=== PATIENT | male | born 1995 | race Caucasian/White ===

== ENCOUNTER 2020-05-08 16:24 | Emergency (ER) | payer OTHER, SELFPAY ==
[2020-05-08 16:37] VITALS: BP 116/61; PULSE 79; RESP 16; TEMP 36.7; O2SAT 96
[2020-05-08 16:51] VITALS: BP 116/61; PULSE 79; RESP 16; TEMP 36.7; O2SAT 96; BMI 28.5
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
[2020-05-08] MEDS: Lidocaine HCl 1 % MPF 5 ML VIAL SUBCUT (17:35)
== END 2020-05-08 17:50 | disposition home or self-care (01) ==
PROVIDERS: Emergency Provider Internal Medicine
DX: L02.214 Cutaneous abscess of groin (principal); L03.314 Cellulitis of groin
CPT/HCPCS: 10060; 99284

== ENCOUNTER 2020-09-29 00:04 | Emergency (ER) | payer OTHER, SELFPAY ==
[2020-09-29 00:17] VITALS: BP 122/74; PULSE 74; RESP 15; TEMP 37; O2SAT 99; BMI 29.1
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
[2020-09-29] MEDS: Ibuprofen 600 MG TABLET PO (01:48)
== END 2020-09-29 02:00 | disposition home or self-care (01) ==
PROVIDERS: Emergency Provider Internal Medicine
DX: S93.401A Sprain of unspecified ligament of right ankle, initial encounter (principal); S96.911A Strain of unspecified muscle and tendon at ankle and foot level, right foot, initial encounter; X50.1XXA Overexertion from prolonged static or awkward postures, initial encounter; Y93.01 Activity, walking, marching and hiking; Y92.480 Sidewalk as the place of occurrence of the external cause; Y99.9 Unspecified external cause status
CPT/HCPCS: 99283; 99284

== ENCOUNTER 2020-10-17 23:28 | Observation (INO) | payer OTHER, SELFPAY ==
--- NOTE | ~2020-10-17 | XR_ITS ---
EXAMINATION: XR CHEST CLINICAL INFORMATION: Seizure COMPARISON: None TECHNIQUE: Frontal view of the chest was obtained. FINDINGS: No significant abnormality is noted involving the heart, lungs, mediastinum, bony thorax or soft tissues. XR/XR chest 1V IMPRESSION: Unremarkable examination.
--- NOTE | ~2020-10-17 | CT_ITS ---
EXAMINATION: CT HEAD WITHOUT CONTRAST CLINICAL INFORMATION: Seizure COMPARISON: None TECHNIQUE: Contiguous axial imaging was performed from the skull base to vertex without intravenous administration of contrast. This CT examination was performed using dose optimization techniques as appropriate, variously including the following: *Automated exposure control *Adjustment of mA and/or kV according to patient size (this includes techniques or standardized protocols for targeted exams where dose is matched to indication/reason for exam; i.e. extremities or head) *Use of iterative reconstruction technique DLP: 710 mGy-cm FINDINGS: There is no evidence of acute intracranial hemorrhage or territorial infarction. No abnormal mass effect or midline shift is seen. Pelayo to white matter differentiation is well preserved. No extra-axial fluid collections are identified. The ventricles are normal in size. There is no abnormal attenuation within the brain parenchyma. The osseous structures and soft tissues are normal. There is complete opacification of the right frontal sinus, right ethmoid air cells and right maxillary sinus with hyperdense secretions associated with periosteal thickening/hyperostosis indicative of chronicity. No evidence of mucocele formation. Remaining paranasal sinuses are clear. Mastoid air cells are clear. CT/CT head/brain wo con IMPRESSION: No acute intracranial pathology. No evidence of intracranial mass. Chronic right frontal, maxillary and ethmoid sinusitis.
[2020-10-17 23:37] VITALS: BP 119/56; PULSE 75; RESP 18; TEMP 36.7; O2SAT 97; BMI 29.0
--- NOTE | 2020-10-18 00:16 | ECG_ITS ---
Test Reason : Seizure Blood Pressure : / mmHG Vent. Rate : 061 BPM Atrial Rate : 061 BPM P-R Int : 226 ms QRS Dur : 108 ms QT Int : 422 ms P-R-T Axes : 035 023 023 degrees QTc Int : 424 ms Sinus rhythm with 1st degree A-V block Otherwise normal ECG No previous ECGs available Referred By: Hellen Black Electronically Signed By:YOBANI VILLAVICENCIO MD
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
--- NOTE | 2020-10-18 00:21 | PC.NURSE ---
patient went to CT at this time
[2020-10-18] MEDS: levETIRAcetam 500 MG TABLET PO ×3 (00:32→20:07)
[2020-10-18] MEDS: 0.9 % Sodium Chloride 1,000 ML 999 ML IVCONT (00:32)
[2020-10-18 00:49] LABS: Basophils Absolute Auto 0.1 X10*3/uL (0.0-0.2); Basophils Percent Auto 0.8 % (0-2); Eosinophils Absolute Auto 0.2 X10*3/uL (0.0-0.4); Eosinophils Percent Auto 2.8 % (0-4); Hemoglobin 12.5 g/dl (14.0-18.0); Imm Gran Abs Auto 0.01 X10*3/uL (0.00-0.03); Imm Gran Pct Auto 0.1 % (0.0-0.4); Lymphocytes Absolute Auto 3.9 X10*3/uL (1.2-4.9); Lymphocytes Percent Auto 51.8 % (20-40); MANUAL DIFF FLAG NO; Mean Corpuscular HGB Conc 32.9 g/dl (31.0-36.0); Mean Corpuscular Hemoglobin 29.8 pg (27.0-33.0); Mean Corpuscular Volume 90.7 fL (80-98); Mean Platelet Volume 9.6 fL (9.4-12.4); Monocytes Absolute Auto 0.5 X10*3/uL (0.1-1.2); Monocytes Percent Auto 6.7 % (2-11); Neutrophils Absolute Auto 2.9 X10*3/uL (2.0-8.3); Neutrophils Percent Auto 37.8 % (45-73); Platelet Count 225 X10*3/uL (160-400); Red Blood Count 4.19 X10*6/uL (4.60-5.80); Red Cell Distribution Width 13.2 % (11.0-16.0); White Blood Count 7.6 X10*3/uL (4.8-10.8)
[2020-10-18 01:05] LABS: COVID-19 Test Negative (Negative); IDNOW Serial# 9DD0AD1C
[2020-10-18 01:19] LABS: Alanine Aminotransferase 18 U/L (0-40); Alkaline Phosphatase 83 U/L (39-117); Anion Gap 13 (12-20); Aspartate Amino Transferase 23 U/L (5-37); Bilirubin Direct < 0.2 mg/dL (0.0-0.5); Bilirubin Total 0.3 mg/dL (0.0-1.0); Blood Urea Nitrogen 20 mg/dL (9-16); Carbon Dioxide 24 mmol/L (22-29); Chloride 106 mmol/L (96-108); Creatinine Clr Calc Pharmacy 183.8; Estimated Glomerular Filt Rate > 60; Glucose Random 97 mg/dL (60-115); Lipase 24 U/L (8-78); Potassium 4.1 mmol/L (3.3-5.1); Sodium 139 mmol/L (135-145); Total Protein 7.1 g/dL (6.5-8.0)
[2020-10-18 02:26] VITALS: BP 105/59; PULSE 62; RESP 17; O2SAT 96
[2020-10-18 03:34] VITALS: BP 112/59; PULSE 64; RESP 18; TEMP 36.2; O2SAT 97
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
--- NOTE | 2020-10-18 06:23 | PC.NURSE ---
This RN was alerted by phlebotomy that the patient was refusing to have his labwork drawn. Upon assessing the patient he would not look at this RN when speaking or explain why he was refusing the bloodwork except for the fact that it hurt . This RN explained the reasoning behind needing the bloodwork and the importance of it but the patient continued to adamantly refuse. Dr. Ugarte alerted of the patients refusal and no further orders placed.
[2020-10-18 07:15] VITALS: BP 103/55; PULSE 53; RESP 16; TEMP 36.3; O2SAT 99
[2020-10-18] MEDS: OLANZapine 10 MG TABLET 20 MG PO (08:24)
[2020-10-18] MEDS: 0.9 % Sodium Chloride Flush 3 ML SYRINGE IVFLUSH ×3 (08:25→23:58)
--- NOTE | 2020-10-18 10:15 | MHC.CM.PN ---
CM attempted to meet with pt to complete NEUROPHYSIOLOGY TECH and deliver Obs notice. CM verbally delivered Obs notice however pt is refusing to answer any questions therefore, NEUROPHYSIOLOGY TECH not yet complete. CM will revisit when pts GF is present.
[2020-10-18 11:18] VITALS: BP 96/57; PULSE 60; RESP 18; TEMP 36.4; O2SAT 97
[2020-10-18 14:49] VITALS: BP 89/54; PULSE 55; RESP 20; TEMP 36.4; O2SAT 96
[2020-10-18 19:03] VITALS: BP 103/51; PULSE 61; RESP 20; TEMP 36; O2SAT 98
[2020-10-19] VITALS: RESP 18
[2020-10-19 04:00] VITALS: BP 97/59; PULSE 50; RESP 18; TEMP 36.1; O2SAT 98
--- NOTE | 2020-10-19 06:28 | P.EN_ITS ---
Event Note Date of Service: 10/19/20 Event Note: pt wants to leave AMA, not willing to wiat for a script for anti-s eizure meds. reports that he will get fired from his job if he doesnt go to work. He undersntands that if he doesnt have meds, he will have recurrent seizures
--- NOTE | 2020-10-19 06:30 | PC.NURSE ---
P[.LEFT AMA I.PT DRESSED AND READY TO LEAVE.STATES HE HAS TO GO TO WORK OR ELSE HE'LL GET FIRED .STATES HE DOESN'T NEED ANY PRESCRIPTIONS. NOTIFIED AND MD UP TO SEE PATIENT.PATIENT REFUSING TO STAY FOR PRESCRIPTIONS FOR SEIZURE MEDS.STATES HE WILL LEAVE NOW AMA.PAPERS SIGNED.NURSING FOOD SERVICE STEWARD ALSO AWARE.TAYE MCGOWAN
--- NOTE | 2020-10-19 09:52 | PM.EVENT ---
Event Note Date of Service: 10/19/20 Event Note: Discharge summary Discharge diagnosis Breakthrough seizure, non-compliant with seizure medications, Schizophrenia The patient was admitted to the hospital for treatment of recurrent seizures secondary to noncompliance with medications. He was treated with Keppra with no reported seizures during the hospital stay. This morning around 630 he decided to leave against medical advice.
== END 2020-10-19 06:30 | disposition left against medical advice (07) ==
LOC: HO.ED 10-18 01:28 → HO.IMC 10-18 02:33
PROVIDERS: Admitting Provider Internal Medicine; Emergency Provider Emergency Medicine; Visit Provider Student in an Organized Health Care Education/Training Program
DX: R56.9 Unspecified convulsions (principal); Z53.29 Procedure and treatment not carried out because of patient's decision for other reasons; F33.9 Major depressive disorder, recurrent, unspecified; F90.9 Attention-deficit hyperactivity disorder, unspecified type; F20.9 Schizophrenia, unspecified; I44.0 Atrioventricular block, first degree; F17.210 Nicotine dependence, cigarettes, uncomplicated; Z91.018 Allergy to other foods; Z20.822 Contact with and (suspected) exposure to COVID-19; Z91.14 Patient's other noncompliance with medication regimen
CPT/HCPCS: 36415; 70450; 71045; 80048; 80076; 82550; 83690; 85025; 87635; 93005; 99219; 99285

== ENCOUNTER 2021-01-16 09:37 | Inpatient (IN) | payer OTHER, SELFPAY ==
[2021-01-16 09:44] VITALS: BP 119/78; PULSE 86; RESP 18; TEMP 36; O2SAT 96; BMI 26.3
[2021-01-16 11:53] LABS: Appearance Urine CLEAR; Color Urine YELLOW; Glucose Urine UA NEG (NEG); Leukocyte Esterase Urine NEG (NEG); Nitrite Urine NEG (NEG); PH 6.5 (5.0-8.0); Urine Blood NEG (NEG); Urine Ketones 5 MG/DL (NEG); Urine Protein TRACE MG/DL (NEG-TRACE)
[2021-01-16 12:27] LABS: Amphetamine Screen Urine Not Detected (Not Detect); Barbiturates, Urine Not Detected (Not Detect); Benzodiazepines Screen Urine Not Detected (Not Detect); Cannabinoid Screen Urine POSITIVE (Not Detect); Cocaine Screen Urine POSITIVE (Not Detect); Opiate Screen Urine Not Detected (Not Detect); Phencyclidine Screen Urine Not Detected (Not Detect)
[2021-01-16 12:59] LABS: MANUAL DIFF FLAG NO
[2021-01-16 13:00] LABS: Basophils Absolute Auto 0.1 X10*3/uL (0.0-0.2); Basophils Percent Auto 0.9 % (0-2); Eosinophils Absolute Auto 0.1 X10*3/uL (0.0-0.4); Eosinophils Percent Auto 0.9 % (0-4); Hematocrit 38.1 % (42-52); Hemoglobin 12.9 g/dl (14.0-18.0); Imm Gran Abs Auto 0.02 X10*3/uL (0.00-0.03); Imm Gran Pct Auto 0.2 % (0.0-0.4); Lymphocytes Absolute Auto 3.1 X10*3/uL (1.2-4.9); Lymphocytes Percent Auto 35.4 % (20-40); Mean Corpuscular HGB Conc 33.9 g/dl (31.0-36.0); Mean Corpuscular Hemoglobin 30.1 pg (27.0-33.0); Monocytes Absolute Auto 0.5 X10*3/uL (0.1-1.2); Monocytes Percent Auto 6.1 % (2-11); Neutrophils Absolute Auto 4.9 X10*3/uL (2.0-8.3); Neutrophils Percent Auto 56.5 % (45-73); Platelet Count 218 X10*3/uL (160-400); Red Blood Count 4.28 X10*6/uL (4.60-5.80); Red Cell Distribution Width 13.3 % (11.0-16.0); White Blood Count 8.7 X10*3/uL (4.8-10.8)
--- NOTE | 2021-01-16 13:00 | ED.PSYCH ---
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 (31.0-36.0) g/dl RDW (11.0-16.0) % Plt Count (160-400) X10*3/uL MPV (9.4-12.4) fL Immature Gran % (Auto) (0.0-0.4) % Neut % (Auto) (45-73) % Lymph % (Auto) (20-40) % [place] % (Auto) (2-11) % Eos % (Auto) (0-4) % Baso % (Auto) (0-2) % Lymph # (Auto) (1.2-4.9) X10*3/uL [place] # (Auto) (0.1-1.2) X10*3/uL Eos # (Auto) (0.0-0.4) X10*3/uL Baso # (Auto) (0.0-0.2) X10*3/uL Abs Immat Gran (auto) (0.00-0.03) X10*3/uL Absolute Neuts (auto) (2.0-8.3) X10*3/uL Absolute Nucleated RBC (0.0-0.012) X10*3/uL Nucleated RBC % (auto) (0.0-0.2) /100WBC Sodium (135-145) mmol/L Potassium (3.3-5.1) mmol/L Chloride (96-108) mmol/L Carbon Dioxide (22-29) mmol/L Anion Gap (12-20) BUN (9-16) mg/dL Creatinine (0.5-1.4) mg/dL Estim Creat Clear Calc Estimated GFR Random Glucose (60-115) mg/dL Calcium (8.4-10.2) mg/dL Total Bilirubin (0.0-1.0) mg/dL Direct Bilirubin (0.0-0.5) mg/dL AST (5-37) U/L ALT (0-40) U/L Alkaline Phosphatase (39-117) U/L Total Protein (6.5-8.0) g/dL Albumin (3.5-5.0) g/dL Urine Color Urine Appearance Urine pH (5.0-8.0) Ur Specific [place] (1.005-1.025) Urine Protein (NEG-TRACE) MG/DL Urine Glucose (UA) (NEG) MG/DL Urine Ketones (NEG) MG/DL Urine Blood (NEG) Urine Nitrite (NEG) Ur Leukocyte Esterase (NEG) Urine Opiates Screen (Not Detect) Ur Barbiturates Screen (Not Detect) Levetiracetam (12.0-46.0) mcg/mL Ur Phencyclidine Scrn (Not Detect) Ur Amphetamines Screen (Not Detect) U Benzodiazepines Scrn (Not Detect) Urine Cocaine Screen (Not Detect) U Marijuana (THC) Screen (Not Detect) Ethyl Alcohol mg/dL COVID-19 (SHANE) Negative (Negative) COVID-19 Clin Com See Note <Shahram Deras MD - Last Filed: 02/20/21 16:38> Discharge Plan Discharge Clinical Impression: Schizophrenia <BRIDGER Burk - Last Filed: 01/16/21 17:18> Patient Disposition: Admitted As Inpatient <BRIDGER Burk - Last Filed: 01/16/21 17:18> Discharge Date/Time: 01/17/21 16:06 <BRIDGER Burk - Last Filed: 01/16/21 17:18> ED Observation ED Observation Progress Notes 1: Progress Note: 01/17/21 - 08:38 BRIDGER Sanabria Physician observation continued. Patient mildly hypotensive overnight at 96/49 although asymptomatic all other vitals are within normal limits. Patient is currently awake denies any complaints or concerns at this time. No focal neuro deficits are noted. Lungs clear to auscultation. CV RRR. Abdomen is soft and nontender. Will continue to monitor as patient is a [facility] Section 12 inpatient bed search. <BRIDGER Sanabria - Last Filed: 01/17/21 08:43>
--- NOTE | 2021-01-16 13:30 | PHA.MEDREC ---
Pharmacy Consult ? Medication Reconciliation Pharmacy has completed the medication reconciliation. Pt stated that he takes vistaril, celexa, and remeron and he gets them filled at [facility] on [facility]. Called [facility], they have no recent records of any current fill history. Pt later stated that he has not had meds filled in a while. Asked if he is still taking levetiracetam 500 mg mg and olanzapine 20 mg, to which he denied.
[2021-01-16 13:33] LABS: Ethanol < 10 mg/dL
[2021-01-16 13:36] LABS: Alanine Aminotransferase 15 U/L (0-40); Alkaline Phosphatase 96 U/L (39-117); Anion Gap 14 (12-20); Aspartate Amino Transferase 18 U/L (5-37); Bilirubin Direct 0.2 mg/dL (0.0-0.5); Bilirubin Total 0.7 mg/dL (0.0-1.0); Blood Urea Nitrogen 10 mg/dL (9-16); Calcium 9.2 mg/dL (8.4-10.2); Chloride 109 mmol/L (96-108); Creatinine Clr Calc Pharmacy 160.7; Estimated Glomerular Filt Rate > 60; Glucose Random 91 mg/dL (60-115); Potassium 4.2 mmol/L (3.3-5.1); Sodium 139 mmol/L (135-145)
[2021-01-16 13:38] LABS: Carbon Dioxide 20 mmol/L (22-29)
--- NOTE | 2021-01-16 18:40 | ECG_ITS ---
Test Reason : MED CLEARANCE Blood Pressure : / mmHG Vent. Rate : 056 BPM Atrial Rate : 056 BPM P-R Int : 234 ms QRS Dur : 096 ms QT Int : 454 ms P-R-T Axes : 018 039 028 degrees QTc Int : 438 ms Sinus bradycardia with 1st degree A-V block Otherwise normal ECG When compared with ECG of 18-OCT-2020 00:50, No significant change was found Referred By: Generic ED Physician Electronically Signed By:DARYA MEJÍA
[2021-01-16 20:05] LABS: IDNOW Serial# 9DD0AD1C
[2021-01-16 20:06] LABS: COVID-19 Test Negative (Negative)
[2021-01-16] MEDS: levETIRAcetam 500 MG TABLET PO (20:43)
[2021-01-16] MEDS: OLANZapine 10 MG TABLET 20 MG PO (20:43)
--- NOTE | 2021-01-16 21:00 | PC.NURSE ---
Patient was compliant with HS PO medication, compliant with COVID swab and EKG, no distress observed/reported, will continue to monitor.
[2021-01-17 00:49] VITALS: BP 96/49; PULSE 50; RESP 16; TEMP 36.7; O2SAT 99
--- NOTE | 2021-01-17 06:25 | PC.NURSE ---
Patient slept through the night, no distress observed/reported, compliant with medication, disposition section 12 inpatient bed search, will continue to monitor.
--- NOTE | 2021-01-17 07:04 | PC.NURSE ---
patient appears to remain at rest appears in no distress respirations even and unlabored
[2021-01-17] MEDS: levETIRAcetam 500 MG TABLET PO ×2 (08:40→20:47)
[2021-01-17 18:00] VITALS: BP 121/60; PULSE 75; RESP 18; TEMP 36.2; O2SAT 96
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
[2021-01-17 20:26] VITALS: BP 121/60; PULSE 75; RESP 18; TEMP 36.2; O2SAT 96
[2021-01-17] MEDS: traZODone HCL 50 MG TABLET PO (20:46)
[2021-01-17] MEDS: OLANZapine 10 MG TABLET 20 MG PO (20:47)
[2021-01-18 06:00] VITALS: BP 122/64; PULSE 72; TEMP 36.4; O2SAT 96
[2021-01-18] MEDS: levETIRAcetam 500 MG TABLET PO (08:25)
--- NOTE | 2021-01-18 11:53 | PC.NURSE ---
pt signed a 3 day notice on 01/18/21 up on Thursday01/23/21
[2021-01-18] MEDS: Divalproex Sodium ER 250 MG TAB.ER.24H 750 MG PO ×2 (12:14→21:27)
[2021-01-18] MEDS: hydrOXYzine HCL 50 MG TABLET PO ×2 (12:14→16:01)
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
[2021-01-18 18:00] VITALS: BP 107/60; PULSE 62; RESP 18; TEMP 36.4; O2SAT 96
[2021-01-18] MEDS: fluPHENAZine HCl 5 MG TABLET PO (21:26)
--- NOTE | 2021-01-19 08:40 | P.PNPSI_ITS ---
Subjective Subjective Date of Service: 01/19/21 Reason For Visit: SI Depression Cocaine Interim History: Pleasant. Denies AH/SI. Anxious to return to work. Asked about 3 day. Educated re same. Wanted to know earlier he could leave. Neuro pending Review of Systems Review of Systems Yes all other systems are reviewed and are negative Constitutional: Reports as per HPI and Reports no additional constitutional complaints Eyes: Reports as per HPI and Reports no additional eye complaints Reports system reviewed and no additional complaints, except as documented, Reports as per HPI and Reports Normal hearing present Cardiovascular: Reports as per HPI and Reports no additional cardiovascular complaints Respiratory: Reports as per HPI and Reports no additional respiratory complaints Gastrointestinal: Reports as per HPI and Reports no additional gastrointestinal complaints Genitourinary: Reports no additional male genitourinary complaints and Reports as per HPI Musculoskeletal: Reports no additional musculoskeletal complaints and Reports as per HPI Skin/Breast: Reports system reviewed and no additional complaints, except as docu Reports system reviewed and no additional complaints, except as documented, Reports as per HPI and Reports Normal hearing present Psychiatric: Reports no additional psychiatric complaints, Reports as per HPI and Reports suicidal ideation Endocrine: Reports no additional endocrine complaints Hematologic/Lymphatic: Reports no additional hematologic/lymphatic complaints Allergic/Immunologic: Reports no additional allergic/immunologic complaints Mental Status Exam Mental Status Exam Narrative: lying in bed sleeping, rousable to loud repetitive voice. no PMA/PMR. cooperative. speech soft and decr in amount. thoughts linear and logical, no evidence of delusions or paranoia. focused on getting out of the hospital by Thursday so he can return to work. affect constricted, normo- intense, non-labile. mood tired. denies SI - MRE yesterday. denies HI. reports VH of ghosts wherever he is, including in the hospital. also report AH every day, also today, saying sleep your life away. Diagnostics Vital Signs (24Hr): Vital Signs - 24 hr 01/18/21 18:00 Temperature 97.6 F Pulse Rate 62 Respiratory Rate 18 Blood Pressure 107/60 Pulse Oximetry 96 Body Mass Index 26.3 Labs Results: 01/16/21 12:55 01/16/21 12:55 Medications Medications Current Medications Generic Name Dose Route Start Last Admin Trade Name Freq PRN Reason Stop Dose Admin Acetaminophen 650 mg 01/17/21 17:48 Acetaminophen 325 Mg Tablet PO Q6H PRN Headache/Pain Mild Scale (1-3) Al Hydroxide/Mg Hydroxide 30 ml 01/17/21 17:48 Magnesium Hydrox/Alum Hydrox 30 Ml Oral.Susp PO Q6H PRN Heartburn/Nausea Divalproex Sodium 750 mg 01/18/21 21:00 01/18/21 21:27 Divalproex Sodium Er 250 Mg Tab.Er.24h PO 750 mg BID SALO Administration Fluphenazine HCl 5 mg 01/18/21 21:00 01/18/21 21:26 Fluphenazine Hcl 5 Mg Tablet PO 5 mg BID SALO Administration Hydroxyzine HCl 25 mg 01/17/21 17:48 Hydroxyzine Hcl 25 Mg Tablet PO BEDTIME PRN Anxiety Hydroxyzine HCl 50 mg 01/18/21 12:05 01/18/21 16:01 Hydroxyzine Hcl 50 Mg Tablet PO 50 mg Q6H PRN Administration Anxiety Magnesium Hydroxide 30 ml 01/17/21 17:48 Milk Of Magnesia 30 Ml Oral.Susp PO DAILY PRN Constipation Nicotine Polacrilex 4 mg 01/17/21 17:48 Nicotine Polacrilex 2 Mg Gum BUCCAL Q2H PRN Nicotine Cravings Trazodone HCl 50 mg 01/17/21 17:48 01/17/21 20:46 Trazodone Hcl 50 Mg Tablet PO 50 mg BEDTIME PRN Administration Insomnia Allergies Allergies Allergy/AdvReac Type Severity Reaction Status Date / Time No Known Allergies Allergy Unverified 03/29/20 16:12 Assessment & Plan Assessment & Plan (1) Schizophrenia: Status: Acute Code(s): F20.9 - Schizophrenia, unspecified Assessment and Plan: DC olanzapine as pt has h/o non-compliance due to sedating effects. start trial of fluphenazine at 5 BID. titrate as needed. as pt may have bipolar diathesis, also switching from keppra to VPA. starting V PA at 750 mg BID. titrate as indicated. (2) Seizure: Status: Acute Code(s): R56.9 - Unspecified convulsions Assessment and Plan: pt reports having seizure once monthly whether he takes keppra or not. history is dubious. he is amenable to DC of keppra and start of VPA to cover both partial seizure and potential bipolar diathesis. will also request neuro chart review consult for opinion on medication change. Greater than 50% of the session was spent on counseling and/or coordination of care Reason for contiued inpatient stay Substantial Risk for: harm to self and rapid decompensation
[2021-01-19] MEDS: Divalproex Sodium ER 250 MG TAB.ER.24H 750 MG PO ×2 (10:35→20:44)
[2021-01-19] MEDS: fluPHENAZine HCl 5 MG TABLET PO ×2 (10:36→20:44)
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
--- NOTE | 2021-01-19 13:48 | PC.NURSE ---
Seen by Neurologist Dr Osorio.
[2021-01-19] MEDS: hydrOXYzine HCL 50 MG TABLET PO (14:08)
[2021-01-19 18:00] VITALS: BP 122/63; PULSE 78; RESP 18; TEMP 36.5; O2SAT 98
[2021-01-19] MEDS: Acetaminophen 325 MG TABLET 650 MG PO (18:31)
[2021-01-19] MEDS: traZODone HCL 50 MG TABLET PO (22:00)
[2021-01-19] MEDS: Magnesium Hydrox/Alum Hydrox 30 ML ORAL.SUSP PO (22:49)
--- NOTE | 2021-01-20 07:26 | P.PNPSI_ITS ---
Subjective Subjective Date of Service: 01/20/21 Reason For Visit: SI Depression Cocaine Interim History: 01/19:Pleasant. Denies AH/SI. Anxious to return to work. Asked about 3 day. Educated re same. Wanted to know earlier he could leave. Neuro pending. 01/20: Mood stable. Anxious to DC. S/B Neuro . Transitioned to VPA Review of Systems Review of Systems Yes all other systems are reviewed and are negative Constitutional: Reports as per HPI and Reports no additional constitutional complaints Eyes: Reports as per HPI and Reports no additional eye complaints Reports system reviewed and no additional complaints, except as documented, Reports as per HPI and Reports Normal hearing present Cardiovascular: Reports as per HPI and Reports no additional cardiovascular complaints Respiratory: Reports as per HPI and Reports no additional respiratory complaints Gastrointestinal: Reports as per HPI and Reports no additional gastrointestinal complaints Genitourinary: Reports no additional male genitourinary complaints and Reports as per HPI Musculoskeletal: Reports no additional musculoskeletal complaints and Reports as per HPI Skin/Breast: Reports system reviewed and no additional complaints, except as docu Reports system reviewed and no additional complaints, except as documented, Reports as per HPI and Reports Normal hearing present Psychiatric: Reports no additional psychiatric complaints, Reports as per HPI and Reports suicidal ideation Endocrine: Reports no additional endocrine complaints Hematologic/Lymphatic: Reports no additional hematologic/lymphatic complaints Allergic/Immunologic: Reports no additional allergic/immunologic complaints Mental Status Exam Mental Status Exam Narrative: lying in bed sleeping, rousable to loud repetitive voice. no PMA/PMR. cooperative. speech soft and decr in amount. thoughts linear and logical, no evidence of delusions or paranoia. focused on getting out of the hospital by Thursday so he can return to work. affect constricted, normo- intense, non-labile. mood tired. denies SI - MRE yesterday. denies HI. reports VH of ghosts wherever he is, including in the hospital. also report AH every day, also today, saying sleep your life away. Diagnostics Vital Signs (24Hr): Vital Signs - 24 hr 01/19/21 18:00 Temperature 97.7 F Pulse Rate 78 Respiratory Rate 18 Blood Pressure 122/63 Pulse Oximetry 98 Body Mass Index 26.3 Labs Results: 01/16/21 12:55 01/16/21 12:55 Medications Medications Current Medications Generic Name Dose Route Start Last Admin Trade Name Freq PRN Reason Stop Dose Admin Acetaminophen 650 mg 01/17/21 17:48 01/19/21 18:31 Acetaminophen 325 Mg Tablet PO 650 mg Q6H PRN Administration Headache/Pain Mild Scale (1-3) Al Hydroxide/Mg Hydroxide 30 ml 01/17/21 17:48 01/19/21 22:49 Magnesium Hydrox/Alum Hydrox 30 Ml Oral.Susp PO 30 ml Q6H PRN Administration Heartburn/Nausea Divalproex Sodium 750 mg 01/18/21 21:00 01/19/21 20:44 Divalproex Sodium Er 250 Mg Tab.Er.24h PO 750 mg BID SALO Administration Fluphenazine HCl 5 mg 01/18/21 21:00 01/19/21 20:44 Fluphenazine Hcl 5 Mg Tablet PO 5 mg BID SALO Administration Hydroxyzine HCl 25 mg 01/17/21 17:48 Hydroxyzine Hcl 25 Mg Tablet PO BEDTIME PRN Anxiety Hydroxyzine HCl 50 mg 01/18/21 12:05 01/19/21 14:08 Hydroxyzine Hcl 50 Mg Tablet PO 50 mg Q6H PRN Administration Anxiety Magnesium Hydroxide 30 ml 01/17/21 17:48 Milk Of Magnesia 30 Ml Oral.Susp PO DAILY PRN Constipation Nicotine Polacrilex 4 mg 01/17/21 17:48 Nicotine Polacrilex 2 Mg Gum BUCCAL Q2H PRN Nicotine Cravings Trazodone HCl 50 mg 01/17/21 17:48 01/19/21 22:00 Trazodone Hcl 50 Mg Tablet PO 50 mg BEDTIME PRN Administration Insomnia Allergies Allergies Allergy/AdvReac Type Severity Reaction Status Date / Time No Known Allergies Allergy Unverified 03/29/20 16:12 Assessment & Plan Assessment & Plan (1) Schizophrenia: Status: Acute Code(s): F20.9 - Schizophrenia, unspecified Assessment and Plan: DC olanzapine as pt has h/o non-compliance due to sedating effects. start trial of fluphenazine at 5 BID. titrate as needed. as pt may have bipolar diathesis, also switching from keppra to VPA. starting VPA at 750 mg BID. titrate as indicated. (2) Seizure: Status: Acute Code(s): R56.9 - Unspecified convulsions Assessment and Plan: pt reports having seizure once monthly whether he takes keppra or not. history is dubious. he is amenable to DC of keppra and start of VPA to cover both partial seizure and potential bipolar diathesis. will also request neuro chart review consult for opinion on medication change. 01/20: Now on VPA. Ct meds. Greater than 50% of the session was spent on counseling and/or coordination of care Reason for contiued inpatient stay Substantial Risk for: harm to self
[2021-01-20 09:07] VITALS: BP 143/60; PULSE 68; RESP 18; TEMP 36.5; O2SAT 95
[2021-01-20] MEDS: Divalproex Sodium ER 250 MG TAB.ER.24H 750 MG PO ×2 (09:25→20:16)
[2021-01-20] MEDS: fluPHENAZine HCl 5 MG TABLET PO ×2 (09:25→20:16)
[2021-01-20] MEDS: hydrOXYzine HCL 50 MG TABLET PO (12:08)
[2021-01-20 18:00] VITALS: BP 95/53; PULSE 73; RESP 16; TEMP 36.8; O2SAT 97
[2021-01-20] MEDS: traZODone HCL 50 MG TABLET PO ×2 (20:16→22:21)
[2021-01-20] MEDS: hydrOXYzine HCL 25 MG TABLET PO (22:21)
[2021-01-21 06:00] VITALS: BP 108/71; PULSE 68; RESP 16; TEMP 36.7; O2SAT 99
[2021-01-21] MEDS: Divalproex Sodium ER 250 MG TAB.ER.24H 750 MG PO ×2 (08:47→20:04)
[2021-01-21] MEDS: fluPHENAZine HCl 5 MG TABLET PO ×2 (08:47→20:04)
--- NOTE | 2021-01-21 12:46 | P.PNPSI_ITS ---
Subjective Subjective Date of Service: 01/21/21 Reason For Visit: SI Depression Cocaine Interim History: pt is found lying in bed late morning, apparently awake. he is easily rousable and comes with MD to interview room for discussion. he reports he is feeling well, no SI/HI, no AH since thursday. feeling ready for discharge and would like to leave tomorrow so he can return to work on thursday. he feels the medications he is on are very salutary for him. he does note he has had a hard time sleeping; he is agreeable to reschedule all of his meds for bedtime, which may help get him to sleep. he would like to discharge tomorrow morning at 0900. he is willing to have labs drawn. Mental Status Exam Mental Status Exam Narrative: lying in bed resting, apparently awake. no PMA/PMR. cooperative. speech nml in amount, rate, latency, prosody, loudness. thoughts linear and logical, no evidence of delusions or paranoia. focused on getting out of the hospital by Thursday so he can return to work. affect more flexible, normo- intense, non-labile. mood tired. denies SI/HI/AH. Diagnostics Vital Signs (24Hr): Vital Signs - 24 hr 01/20/21 18:00 01/21/21 06:00 Temperature 98.2 F 98.0 F Pulse Rate 73 68 Respiratory Rate 16 16 Blood Pressure 95/53 L 108/71 Pulse Oximetry 97 99 Body Mass Index 26.3 Labs Results: 01/16/21 12:55 01/16/21 12:55 Medications Medications Current Medications Generic Name Dose Route Start Last Admin Trade Name Milena PRN Reason Stop Dose Admin Acetaminophen 650 mg 01/17/21 17:48 01/19/21 18:31 Acetaminophen 325 Mg Tablet PO 650 mg Q6H PRN Administration Headache/Pain Mild Scale (1-3) Al Hydroxide/Mg Hydroxide 30 ml 01/17/21 17:48 01/19/21 22:49 Magnesium Hydrox/Alum Hydrox 30 Ml Oral.Susp PO 30 ml Q6H PRN Administration Heartburn/Nausea Divalproex Sodium 750 mg 01/21/21 21:00 Divalproex Sodium Er 250 Mg Tab.Er.24h PO 01/21/21 21:01 ONCE ONE Divalproex Sodium 1,500 mg 01/22/21 06:00 Divalproex Sodium Er 500 Mg Tab.Er.24h PO BEDTIME SALO Fluphenazine HCl 5 mg 01/21/21 21:00 Fluphenazine Hcl 5 Mg Tablet PO 01/21/21 21:01 ONCE ONE Fluphenazine HCl 10 mg 01/22/21 06:00 Fluphenazine Hcl 2.5 Mg/5 Ml Elixir PO BEDTIME SALO Hydroxyzine HCl 25 mg 01/17/21 17:48 01/20/21 22:21 Hydroxyzine Hcl 25 Mg Tablet PO 25 mg BEDTIME PRN Administration Anxiety Hydroxyzine HCl 50 mg 01/18/21 12:05 01/20/21 12:08 Hydroxyzine Hcl 50 Mg Tablet PO 50 mg Q6H PRN Administration Anxiety Magnesium Hydroxide 30 ml 01/17/21 17:48 Milk Of Magnesia 30 Ml Oral.Susp PO DAILY PRN Constipation Nicotine Polacrilex 4 mg 01/17/21 17:48 Nicotine Polacrilex 2 Mg Gum BUCCAL Q2H PRN Nicotine Cravings Trazodone HCl 50 mg 01/17/21 17:48 01/20/21 22:21 Trazodone Hcl 50 Mg Tablet PO 50 mg BEDTIME PRN Administration Insomnia Allergies Allergies Allergy/AdvReac Type Severity Reaction Status Date / Time No Known Allergies Allergy Unverified 03/29/20 16:12 Assessment & Plan Assessment & Plan (1) Schizophrenia: Status: Acute Code(s): F20.9 - Schizophrenia, unspecified Assessment and Plan: DCed olanzapine as pt has h/o non-compliance due to sedating effects. started trial of fluphenazine at 5 BID. titrate as needed. as pt may have bipolar diathesis, also switching from keppra to VPA. started VPA at 750 mg BID. titrate as indicated. at discharge, dosing of both VPA and prolixin consolidated at HS. (2) Seizure: Status: Acute Code(s): R56.9 - Unspecified convulsions Assessment and Plan: pt reports having seizure once monthly whether he takes keppra or not. history is dubious. he is amenable to DC of keppra and start of VPA to cover both partial seizure and potential bipolar diathesis. will also request neuro chart review consult for opinion on medication change. Greater than 50% of the session was spent on counseling and/or coordination of care Reason for contiued inpatient stay Substantial Risk for: harm to self and harm to others
[2021-01-21 14:27] LABS: Levetiracetam Keppra <1.0 mcg/mL (12.0-46.0)
[2021-01-21] MEDS: hydrOXYzine HCL 50 MG TABLET PO (16:16)
[2021-01-21 17:20] VITALS: BP 112/78; PULSE 70; RESP 16; TEMP 36.8; O2SAT 98
[2021-01-21] MEDS: traZODone HCL 50 MG TABLET PO ×2 (20:04→21:49)
[2021-01-21] MEDS: hydrOXYzine HCL 25 MG TABLET PO (21:49)
[2021-01-22 06:00] VITALS: BP 138/69; PULSE 86; RESP 16; TEMP 36.6; O2SAT 99
[2021-01-22 07:41] LABS: MANUAL DIFF FLAG NO
[2021-01-22 07:44] LABS: Basophils Absolute Auto 0.1 X10*3/uL (0.0-0.2); Basophils Percent Auto 0.9 % (0-2); Eosinophils Absolute Auto 0.2 X10*3/uL (0.0-0.4); Eosinophils Percent Auto 3.2 % (0-4); Hematocrit 40.2 % (42-52); Hemoglobin 13.4 g/dl (14.0-18.0); Imm Gran Abs Auto 0.04 X10*3/uL (0.00-0.03); Imm Gran Pct Auto 0.5 % (0.0-0.4); Lymphocytes Absolute Auto 3.9 X10*3/uL (1.2-4.9); Lymphocytes Percent Auto 51.7 % (20-40); Mean Corpuscular HGB Conc 33.3 g/dl (31.0-36.0); Mean Corpuscular Volume 89.9 fL (80-98); Mean Platelet Volume 9.1 fL (9.4-12.4); Monocytes Absolute Auto 0.7 X10*3/uL (0.1-1.2); Monocytes Percent Auto 9.4 % (2-11); Neutrophils Absolute Auto 2.6 X10*3/uL (2.0-8.3); Neutrophils Percent Auto 34.3 % (45-73); Platelet Count 221 X10*3/uL (160-400); Red Blood Count 4.47 X10*6/uL (4.60-5.80); Red Cell Distribution Width 12.9 % (11.0-16.0); White Blood Count 7.6 X10*3/uL (4.8-10.8)
[2021-01-22 08:22] LABS: Valproate 51.8 mcg/mL (50.0-100.0)
[2021-01-22 08:26] LABS: Alanine Aminotransferase 14 U/L (0-40); Albumin Level 3.8 g/dL (3.5-5.0); Alkaline Phosphatase 79 U/L (39-117); Anion Gap 14 (12-20); Aspartate Amino Transferase 13 U/L (5-37); Bilirubin Direct < 0.2 mg/dL (0.0-0.5); Bilirubin Total 0.3 mg/dL (0.0-1.0); Calcium 9.2 mg/dL (8.4-10.2); Carbon Dioxide 26 mmol/L (22-29); Chloride 104 mmol/L (96-108); Creatinine Clr Calc Pharmacy 154.8; Estimated Glomerular Filt Rate > 60; Glucose Random 91 mg/dL (60-115); Potassium 4.7 mmol/L (3.3-5.1); Sodium 139 mmol/L (135-145); Total Protein 6.8 g/dL (6.5-8.0)
[2021-01-22 08:39] LABS: Blood Urea Nitrogen 19 mg/dL (9-16)
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
== END 2021-01-22 09:00 | disposition home or self-care (01) | DRG 750 ==
LOC: HO.ED 01-17 13:51 → HO.PADLT16 01-17 14:25
PROVIDERS: Emergency Medicine; Physician Assistant; Admitting Provider Psychiatry & Neurology Psychiatry; Emergency Provider Emergency Medicine; Visit Provider Psychiatry & Neurology Psychiatry
DX: F20.9 Schizophrenia, unspecified (principal); I95.9 Hypotension, unspecified; R45.851 Suicidal ideations; R56.9 Unspecified convulsions; F90.9 Attention-deficit hyperactivity disorder, unspecified type; F17.210 Nicotine dependence, cigarettes, uncomplicated; Z71.6 Tobacco abuse counseling; Z20.822 Contact with and (suspected) exposure to COVID-19; Z79.899 Other long term (current) drug therapy
CPT/HCPCS: 36415; 80048; 80053; 80076; 80164; 80177; 80307; 81003; 82077; 82248; 85025; 87635; 93005; 99284